=== PATIENT | male | born 1995 | race Caucasian/White ===

== ENCOUNTER 2017-02-16 16:35 | Observation (INO) | payer BC ==
--- NOTE | 2017-02-16 17:03 | EDPHY ---
H & P Stated Complaint: Sharp upper abd pain x 1 Time Seen by Provider: 02/16/17 17:02 HPI/ROS: CHIEF COMPLAINT: Abdominal pain HISTORY OF PRESENT ILLNESS: The patient presents to the ED with a 1 day history of acute severe abdominal pain. The patient reports his pain is in the hypogastric area. He reports nausea but no vomiting. He denies any diarrhea. He denies prior history of the symptoms. The patient denies history of recent fever, cough or congestion. The patient denies prior history of abdominal surgery. The patient currently rates his pain as an 8/10. The patient does have some mild chronic low back pain which has not acutely worsened today. REVIEW OF SYSTEMS: A comprehensive 10 point review of systems is otherwise negative aside from elements mentioned in the history of present illness. Source: Patient Exam Limitations: No limitations - Personal History Current Tetanus Diphtheria and Acellular Pertussis (TDAP): Yes - Medical/Surgical History Other PMH: healthy - Social History Smoking Status: Never smoked - Physical Exam Exam: General Appearance: Alert, no distress Eyes: Pupils equal and round no pallor or injection ENT, Mouth: Mucous membranes moist Respiratory: There are no retractions, lungs are clear to auscultation Cardiovascular: Regular rate and rhythm Gastrointestinal: Tenderness to palpation in the right lower quadrant, equivocal obturator, equivocal Rovsing Neurological: A&O, normal motor function, normal sensory exam, normal cranial nerves Skin: Warm and dry, no rashes Musculoskeletal: Neck is supple nontender Extremities: symmetrical, full range of motion Constitutional: Initial Vital Signs Temperature (C) 36.6 C 02/16/17 16:40 Heart Rate 80 02/16/17 16:40 Respiratory Rate 20 02/16/17 16:40 Blood Pressure 128/70 H 02/16/17 16:40 O2 Sat (%) 97 02/16/17 16:40 O2 Delivery Mode Room Air Allergies/Adverse Reactions: No Known Allergies Allergy (Unverified 02/16/17 16:44) Home Medications: Medication Instructions Recorded Benzonatate [Tessalon Pearles (RX)] 100 mg PO 02/16/17 Medical Decision Making - Diagnostics Imaging Results: Imaging Impressions Abdomen Ultrasound 02/16/17 17:40 Impression: Constellation of sonographic findings that would support a clinical diagnosis of acute appendicitis. Results called and discussed with Jaron Koch M.D. on 02/16/2017 at 18:27 ED Course/Re-evaluation: The patient had an IV established. The patient was made npo. The patient received 1 L of normal saline. He received IV fentanyl and Zofran. Given his right lower quadrant tenderness, a stat ultrasound was ordered to evaluate for possible acute appendicitis. Patient returns from his ultrasound. I reviewed the images and discussed with radiologist Dr. Davis Erickson. The patient does have ultrasonographic findings consistent with acute appendicitis. The patient received an additional 4 mg of IV morphine at 6:20 p.m.. 1 g of IV Invanz was ordered. General surgical consultation was requested with Dr. Mejía at 6:20 p.m. 7:40 p.m.: The patient was evaluated by Dr. Mejía. He has been transferred to the operating room for laparoscopic appendectomy. He will be admitted to the surgery service under Dr. Mejía's care postoperatively. Differential Diagnosis: Differential diagnosis considered includes appendicitis, mesenteric adenitis, cholecystitis, nephrolithiasis, pyelonephritis - Data Points Laboratory Results: Laboratory Results 02/16/17 17:10 02/16/17 17:10 02/16/17 02/16/17 17:10 17:10 WBC 15.91 10^3/uL H 10^3/uL (3.80-9.50) RBC 5.34 10^6/uL 10^6/uL (4.40-6.38) Hgb 16.6 g/dL g/dL (13.7-17.5) Hct 46.3 % % (40.0-51.0) MCV 86.7 fL fL (81.5-99.8) MCH 31.1 pg pg (27.9-34.1) MCHC 35.9 g/dL g/dL (32.4-36.7) RDW 12.1 % % (11.5-15.2) Plt Count 266 10^3/uL 10^3/uL (150-400) MPV 9.7 fL fL (8.7-11.7) Neut % (Auto) 81.2 % H % (39.3-74.2) Lymph % (Auto) 8.6 % L % (15.0-45.0) Young % (Auto) 8.4 % % (4.5-13.0) Eos % (Auto) 0.8 % % (0.6-7.6) Baso % (Auto) 0.5 % % (0.3-1.7) Nucleat RBC Rel Count 0.0 % % (0.0-0.2) Absolute Neuts (auto) 12.93 10^3/uL H 10^3/uL (1.70-6.50) Absolute Lymphs (auto) 1.37 10^3/uL 10^3/uL (1.00-3.00) Absolute Monos (auto) 1.33 10^3/uL H 10^3/uL (0.30-0.80) Absolute Eos (auto) 0.12 10^3/uL 10^3/uL (0.03-0.40) Absolute Basos (auto) 0.08 10^3/uL 10^3/uL (0.02-0.10) Absolute Nucleated RBC 0.00 10^3/uL 10^3/uL (0-0.01) Immature Gran % 0.5 % % (0.0-1.1) Immature Gran # 0.08 10^3/uL 10^3/uL (0.00-0.10) Sodium 136 mEq/L mEq/L (134-144) Potassium 4.0 mEq/L mEq/L (3.5-5.2) Chloride 99 mEq/L mEq/L (97-110) Carbon Dioxide 23 mEq/l mEq/l (22-31) Anion Gap 14 mEq/L mEq/L (8-16) BUN 15 mg/dL mg/dL (7-23) Creatinine 0.9 mg/dL mg/dL (0.7-1.3) Estimated GFR > 60 Glucose 92 mg/dL mg/dL (70-100) Calcium 9.5 mg/dL mg/dL (8.5-10.4) Total Bilirubin 0.7 mg/dL mg/dL (0.1-1.4) Conjugated Bilirubin 0.1 mg/dL mg/dL (0.0-0.5) Unconjugated Bilirubin 0.6 mg/dL mg/dL (0.0-1.1) AST 27 IU/L IU/L (17-59) ALT 29 IU/L IU/L (21-72) Alkaline Phosphatase 65 IU/L IU/L (38-126) Total Protein 7.5 g/dL g/dL (6.3-8.2) Albumin 4.6 g/dL g/dL (3.5-5.0) Lipase 121 IU/L IU/L (23-300) Medications Given: Discontinued Medications Fentanyl (Sublimaze) 100 mcg IVP EDNOW ONE Stop: 02/16/17 17:17 Last Admin: 02/16/17 17:23 Dose: 100 mcg Sodium Chloride (Ns) 1,000 mls @ 0 mls/hr IV EDNOW ONE; Wide Open PRN Reason: Protocol Stop: 02/16/17 17:17 Last Admin: 02/16/17 17:23 Dose: 1,000 mls Ertapenem 1 gm/ Sodium (Chloride) 100 mls @ 200 mls/hr IV EDNOW ONE PRN Reason: Protocol Stop: 02/16/17 18:49 Last Admin: 02/16/17 18:52 Dose: 100 mls Morphine Sulfate (Morphine) 4 mg IVP EDNOW ONE Stop: 02/16/17 18:21 Last Admin: 02/16/17 18:23 Dose: 2 mg Morphine Sulfate (Morphine) 2 mg IVP ONCE ONE Stop: 02/16/17 18:56 Last Admin: 02/16/17 19:18 Dose: 2 mg Departure - Departure Disposition: [facility] Inpatient Acute Clinical Impression: Acute appendicitis Condition: Good
[2017-02-16] MEDS ORDERED: fentaNYL 100 MCG/2 ML INJ IVP ONE (17:16)
[2017-02-16] MEDS ORDERED: NS 1,000 ML IV ONE (17:16)
[2017-02-16 17:23] LABS: % IMMATURE GRANULYOCYTES 0.5 % (0.0-1.1); ABSOLUTE IMMATURE GRANULOCYTES 0.08 10^3/uL (0.00-0.10); ADD DIFF? NO; ADD MORPH? NO; ADD SCAN? NO; ATYPICAL LYMPHOCYTE FLAG 10 (0-99); FRAGMENT RBC FLAG 0 (0-99); HEMATOCRIT 46.3 % (40.0-51.0); HEMOGLOBIN 16.6 g/dL (13.7-17.5); LEFT SHIFT FLG 0 (0-99); LIPEMIA HEMOLYSIS FLAG 90 (0-99); MEAN CELL HEMOGLOBIN 31.1 pg (27.9-34.1); MEAN CELL HEMOGLOBIN CONCENTR. 35.9 g/dL (32.4-36.7); MEAN CELL VOLUME 86.7 fL (81.5-99.8); MEAN PLATELET VOLUME 9.7 fL (8.7-11.7); PLATELET CLUMPS FLAG 0 (0-99); PLATELET COUNT 266 10^3/uL (150-400); RED BLOOD CELL COUNT 5.34 10^6/uL (4.40-6.38); RED CELL DISTRIBUTION WIDTH 12.1 % (11.5-15.2)
[2017-02-16 17:37] LABS: ALANINE AMINOTRANSFERASE 29 IU/L (21-72); ALBUMIN 4.6 g/dL (3.5-5.0); ALKALINE PHOSPHATASE 65 IU/L (38-126); ANION GAP 14 mEq/L (8-16); ASPARTATE AMINOTRANSFERASE 27 IU/L (17-59); BILIRUBIN,TOTAL 0.7 mg/dL (0.1-1.4); BILIRUBIN-CONJUGATED 0.1 mg/dL (0.0-0.5); BILIRUBIN-UNCONJUGATED 0.6 mg/dL (0.0-1.1); CALCIUM 9.5 mg/dL (8.5-10.4); CARBON DIOXIDE 23 mEq/l (22-31); CHLORIDE 99 mEq/L (97-110); CREATININE 0.9 mg/dL (0.7-1.3); GLOMERULAR FILTRATION RATE > 60; GLUCOSE 92 mg/dL (70-100); SODIUM 136 mEq/L (134-144); TOTAL PROTEIN 7.5 g/dL (6.3-8.2)
[2017-02-16] MEDS ORDERED: ERTAPENEM 1 GM in NS 100 ML IV ONE (18:20)
[2017-02-16] MEDS ORDERED: ceFAZolin 1 GM/5 ML SYR ONE (19:30)
[2017-02-16] MEDS ORDERED: HEPARIN 5,000 UNIT/0.5 ML SYR ONE (19:30)
[2017-02-16] MEDS ORDERED: LR 1,000 ML IV ONE (19:35)
--- NOTE | 2017-02-16 19:55 | PDANEPAE ---
ANE History of Present Illness 21 year old male presents for appendectomy. ANE Past Medical History - Cardiovascular History Hx Hypertension: No Hx Arrhythmias: No Hx Chest Pain: No Hx Coronary Artery / Peripheral Vascular Disease: No Hx CHF / Valvular Disease: No Hx Palpitations: No - Pulmonary History Hx COPD: No Hx Asthma/Reactive Airway Disease: No Hx Recent Upper Respiratory Infection: No Hx Oxygen in Use at Home: No Hx Sleep Apnea: No - Neurologic History Hx Cerebrovascular Accident: No Hx Seizures: No Hx Dementia: No - Endocrine History Hx Diabetes: No Hypothyroid: No Hyperthyroid: No Obesity: no - Renal History Hx Renal Disorders: No - Liver History Hx Hepatic Disorders: No - Neurological & Psychiatric Hx Hx Neurological and Psychiatric Disorders: No - Cancer History Hx Cancer: No - Congenital Disorder History Hx Congenital Disorders: No - GI History GERD: mild Hx Gastrointestinal Disorders: No ANE Review of Systems Review of systems is: negative Review of Systems: - Exercise capacity Exercise capacity: >=4 METS ANE Patient History - Allergies Allergies/Adverse Reactions: No Known Allergies Allergy (Unverified 02/16/17 16:44) - Home Medications Home medications: home medication list seen and reviewed Home Medications: Benzonatate [Tessalon Pearles (RX)] 100 mg PO 02/16/17 [Last Taken Unknown] - NPO status NPO Since - Liquids (Date): 02/16/17 NPO Since - Liquids (Time): 16:00 NPO Since - Solids (Date): 02/16/17 NPO Since - Solids (Time): 14:00 - Smoking Hx Smoking Status: Never smoked Marijuana use: Yes - Alcohol Use Alcohol Use: Occasionally - Family Anes Hx Family Anes Hx: neg - N/A ANE Labs/Vital Signs - Labs Result Diagrams: 02/16/17 17:10 02/16/17 17:10 - Vital Signs Vital Signs: reviewed preoperatively; see RN documention for details Blood Pressure: 135/64 Heart Rate: 82 Respiratory Rate: 20 O2 Sat (%): 95 Height: 175.26 cm Weight: 90.718 kg ANE Physical Exam - Airway Neck exam: FROM Mallampati Score: Class 2 Mouth exam: normal dental/mouth exam - Pulmonary Pulmonary: no respiratory distress - Cardiovascular Cardiovascular: regular rate and rhythym - ASA Status ASA Status: I, E ANE Anesthesia Plan Anesthesia Plan: general endotracheal anesthesia Total IV Anesthesia: No
[2017-02-16] MEDS ORDERED: fentaNYL 100 MCG/2 ML INJ ONE ×4 (19:56→21:51)
[2017-02-16] MEDS ORDERED: PROPOFOL 200 MG/20 ML VIAL ONE (19:56)
[2017-02-16] MEDS ORDERED: MIDAZOLAM 2 MG/2 ML VIAL ONE (19:56)
[2017-02-16] MEDS ORDERED: LIDOCAINE 2% 5 ML SDV ONE ×2 (19:57)
[2017-02-16] MEDS ORDERED: ROCURONIUM 50 MG/5 ML VIAL ONE (19:57)
[2017-02-16] MEDS ORDERED: SUCCINYLCHOLINE CHLORIDE*ANESTHESIA ONLY*200 MG/10 ML SYR IVP ONE (19:57)
--- NOTE | 2017-02-16 20:07 | GHP ---
[f rep st] PREOP HISTORY AND PHYSICAL DATE OF ADMISSION: 02/16/2017 ADMITTING DIAGNOSIS: Acute appendicitis. 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 He then came home, took a nap, and woke up approximately 4:00 p.m. He had no nausea or vomiting, but had a bandlike lower abdominal pain, which became more prominent in the right lower quadrant, prompting him to come to the emergency room for evaluation. He has had an upper respiratory tract infection for approximately 1 day, and no antecedent history of diarrhea (his last stool was this morning and normal). He has had no prior similar symptoms and no abdominal surgery. There is no history of inflammatory bowel disease. He has not had any travel outside the [place] or antibiotic use in the last 6 months. He did not eat breakfast , and usually does not. He had a burger for lunch approximately 1-2, and had a sip of water approximately 4:00 p.m. Note is made that his girlfriend is ill, and she had some penicillin pills, which he took 2 days ago. He presented to the emergency room. He was found to have a white blood cell count of 15,900 with 81% neutrophils. His lipase was normal at 121. His temperature is 36.8. Blood pressure 127/67 and 91. Sonogram showed a noncompressible tubular structure in the right lower quadrant. SOCIAL HISTORY: He smoked from age [age] at approximately 2 cigarettes a day. He does drink 3 nights a week, and typically drinks 6-7 beers on those nights. ALLERGIES: He has no known drug allergies. MEDICATIONS: He is not taking medications. PAST SURGICAL HISTORY: He has had no prior surgery. PAST MEDICAL HISTORY: There is no history of rheumatic fever, tuberculosis, hepatitis, or transfusions. REVIEW OF SYSTEMS: He has had 1 concussion. He wears lenses for visual correction. There are no limits on his activities, and no history of steroid use. PHYSICAL EXAMINATION: GENERAL: He is seen lying in ER bed 23. He is awake, alert, pleasant, but uncomfortable. There is no cervical, supraclavicular, axillary or inguinal lymphadenopathy identified. LUNGS: Clear to auscultation. CARDIAC: S1, S2 to be normal. ABDOMINAL: Hypoactive bowel sounds. He is tender with cough in both the epigastrium and the right lower quadrant. Right lower quadrant is 5 on a scale of 1-10. Epigastrium is 8. Psoas and obturator signs are negative. To palpation, his left upper quadrant is 7. Left midabdomen is 1. Left lower quadrant is 7. Epigastrium is 8. Periumbilical region is 9. Suprapubic area is 7. Right upper quadrant is 8. Right midabdomen is 9. Right lower quadrant is 10. PRESUMPTIVE DIAGNOSIS: Acute appendicitis. PLAN: I will plan a laparoscopic appendectomy. The patient understands the planned procedure and agrees to proceed as outlined. /[id number]/MODL MTDD
[2017-02-16] MEDS ORDERED: SUGAMMADEX SODIUM 200 MG/2 ML VIAL IVP ONE (20:23)
[2017-02-16] MEDS ORDERED: ONDANSETRON 4 MG/2 ML VIAL ONE (20:23)
[2017-02-16] MEDS ORDERED: DEXAMETHASONE 4 MG/ML VIAL ONE (20:24)
[2017-02-16] MEDS ORDERED: KETOROLAC 30 MG/1 ML SDV ONE (20:47)
[2017-02-16] MEDS ORDERED: HYDROmorphone HCL/NS/PF 0.4 MG/2 ML SYR IVP PRN (21:08)
[2017-02-16] MEDS ORDERED: ONDANSETRON 4 MG/2 ML VIAL IVP PRN ×2 (21:08→21:20)
[2017-02-16] MEDS ORDERED: BENZONATATE 100 MG CAP PO PRN (21:13)
--- NOTE | 2017-02-16 21:17 | POSTOPPROG ---
Post Op Note Date of Operation: 02/16/17 Surgeon: Devon Mejía Anesthesia: GET(General Endotracheal) Pre-op Diagnosis: acute appendicitis Post-op Diagnosis: acute unruptured appendicitis Indication: acute appendicitis Procedure: laparoscopic appendectomy Findings: acute unruptured appendicitis Inf/Abcess present in the surg proc area at time of surgery?: No EBL: Minimal Total fluids administered: 650 in OR 1000 in ER Complications: none Specimen(s): appendix
[2017-02-16] MEDS ORDERED: LR 500 ML IV PRN (21:20)
[2017-02-16] MEDS ORDERED: NALOXONE HCL 0.4 MG/ML INJ IVP PRN (21:20)
[2017-02-16] MEDS ORDERED: OXYCODONE/APAP 5/325 TAB PO PRN (21:20)
--- NOTE | 2017-02-16 21:21 | POSTANESTH ---
Post Anesthetic Evaluation Cardiovascular Status: Normal, Stable, Similar to Pre-Op Cond Respiratory Status: Normal, Stable, Similar to Pre-op Cond. Level of Consciousness/Mental Status: Can Participate in Eval, Alert and Oriented Pain Control: Adequate, Prn Tx Ordered Nausea/Vomiting Control: Adequate, Prn Tx Ordered Complications Possibly Related to Anesthesia: None Noted
[2017-02-16] MEDS: fentaNYL 100 MCG/2 ML INJ IVP PRN ×4 (21:22→22:03)
[2017-02-16] MEDS ORDERED: LR 1,000 ML IV SCH (21:30)
[2017-02-16] MEDS ORDERED: HYDROmorphONE/DILAUDID 1 MG/ML INJ ONE (21:40)
--- NOTE | 2017-02-16 21:43 | GOP ---
[f rep st] OPERATIVE REPORT DATE OF OPERATION: 02/16/2017 SURGEON: Devon Mejía MD PREOPERATIVE DIAGNOSIS: Acute appendicitis. POSTOPERATIVE DIAGNOSIS: Acute unruptured appendicitis. PROCEDURE PERFORMED: Laparoscopic appendectomy. FINDINGS: Acute unruptured appendicitis. ESTIMATED BLOOD LOSS: Scant. INDICATIONS: Acute appendicitis. DESCRIPTION OF PROCEDURE: The patient is placed on the operating table in supine position. After induction of adequate general endotracheal anesthesia, a surgical time-out was carried out and agreed to by all members of the operative team. A curvilinear incision was planned in the umbilicus. A linear transverse 5 mm incision was planned in the suprapubic area and an oblique 5 mm incision was planned in the left lower quadrant. All incisions were made sharply. Dissection was continued with Bovie electrocautery and blunt dissection, particularly at the umbilical site. The rectus sheath was elevated between 2 Allis clamps. The rectus sheath was incised in the midline. A pursestring #0 PDS was placed. An 11-12 mm Janelle trocar was positioned. Intra-abdominal insufflation was carried out to 15 mmHg. A 5 mm port was placed under direct vision in the left lower quadrant and in the suprapubic area. The appendix is hidden under a lateral adhesion from the terminal ileum draping over the top of it. This adhesion is carefully lysed to expose the appendix. The mesoappendix was divided down to the appendiceal base on the cecum. A powered 35 mm Endo- KISHA stapler was used to transect the appendix on the cecum, taking a small cuff of cecum. The specimen was placed in EndoCatch bag and delivered via the umbilical port site. Pneumoperitoneum was re-established. The pelvis was carefully examined. There was a small amount of translucent fluid identified. This was aspirated and irrigation was carried out with heparin and Ancef containing irrigant. The small bowel was run for a distance of 3 feet. There was no evidence of mesenteric adenitis or Meckel's diverticulum. The ports were removed under direct vision. The umbilical fascial defect was carefully elevated with Allis clamps at the midpoint on each side of the midline. A simple suture of #0 PDS was placed. The pursestring was tied and then the second suture was tied. Hemostasis was checked and found to be excellent. Inverted simple sutures of #4-0 Vicryl were placed at all incisions. Mastisol and Steri-Strips were applied. Band-Aids were positioned. The patient was transferred to recovery in stable and satisfactory condition. FLUIDS: 1000 cc in the ER and 650 cc in the OR. /[id number]/MODL MTDD
[2017-02-16] MEDS: HYDROmorphONE/DILAUDID 1 MG/ML INJ IVP PRN ×2 (21:45→21:57)
[2017-02-16] MEDS: ACETAMINOPHEN 500 MG TAB PO SCH (23:20)
[2017-02-17] MEDS: KETOROLAC 30 MG/1 ML SDV IVP SCH ×2 (00:32→06:19)
[2017-02-17 04:29] VITALS: RESP 16
[2017-02-17] MEDS: ACETAMINOPHEN 500 MG TAB PO SCH (04:48)
[2017-02-17] MEDS ORDERED: HYDROCODONE/APAP 5/325 TAB PO PRN (07:36)
[2017-02-17 07:40] VITALS: BP 111/60; PULSE 78; TEMP 97.9; O2SAT 97
--- NOTE | 2017-02-17 07:43 | PDDCSUM ---
Discharge Summary Discharge Summary: DISCHARGE SUMMARY Date of Admission February 16 Date of Discharge February 17 DISCHARGE DIAGNOSES -acute appendicitis HOSPITAL COURSE The patient was admitted from the ED and taken to the operating room where they underwent an uneventful laparoscopic appendectomy. They were subsequently taken to the PACU and then the general medical floor. The hospital course was uneventful, their diet was advanced to a regular diet which was well tolerated and their pain was well controlled. They were discharged home in stable condition on the morning of the DISCHARGE MEDICATIONS The only new medication was [place] as needed for pain DISPOSITION Home FOLLOW UP Follow up with me in the office in 10-14 days for a general post-operative visit
--- NOTE | 2017-02-17 11:44 | ASDISCHSUM ---
Discharge Information Plan Status:Home with No Needs Medically Cleared to Leave:02/16/2017 Discharge Date:02/17/2017 10:21 AM CM D/C Disposition: ADT D/C Disposition:Home, Routine, Self-Care Projected Discharge Date:02/17/2017 12:00 AM Transportation at D/C: Discharge Delay Reason: Follow-Up Date:02/17/2017 12:00 AM Discharge Slot: Final Diagnosis: Placement Information Patient Contact Information Contact Name:CHRISTINE Relationship:Mother Address: Work Phone: City:[place] Alternate Phone: State/Zip Code:[place] Email: Financial Information Financial Class:HMO and PPO Plans Primary Plan Desc: OUT OF STATE PPO Primary Plan Number:[id number] Secondary Plan Desc: Secondary Plan Number: Assessment Information Intervention Information
== END 2017-02-17 10:21 | disposition home or self-care (01) ==
LOC: F3E 22:17
PROVIDERS: ADMIT Surgery; ATTEND Surgery
PROC: 0DTJ4ZZ Resection of Appendix, Percutaneous Endoscopic Approach (ICD-10-PCS; principal; 2017-02-16 19:30)
DX: K35.80 Unspecified acute appendicitis (principal)
CPT/HCPCS: 44970; 76705; G0378; 96365; J0330; J1100; J1170; J1335; J1885; J2250; J2405; J2704; J3010

== ENCOUNTER 2017-02-19 19:25 | Emergency (ER) | payer BC ==
--- NOTE | 2017-02-19 20:35 | EDPHY ---
H & P Stated Complaint: Incision bandage has blood on it Time Seen by Provider: 02/19/17 20:35 HPI/ROS: Chief Complaint: Wound check HPI: The patient presents to the ED for wound check. He is status post laparoscopic appendectomy. He was discharged home uneventfully several days ago. The patient noticed some small bleeding around his umbilical incision and presents for a evaluation. The patient denies any fever, abdominal pain, vomiting. The patient has continued to have normal bowel movements. He denies any additional acute complaints. REVIEW OF SYSTEMS: Neuro: no headache, numbness, weakness Musculoskeletal: as above Skin: As above Source: Patient Exam Limitations: No limitations - Personal History Current Tetanus/Diphtheria Vaccine: Unsure Current Tetanus Diphtheria and Acellular Pertussis (TDAP): Unsure - Medical/Surgical History Hx Asthma: No Hx Chronic Respiratory Disease: No Hx Diabetes: No Hx Cardiac Disease: No Hx Renal Disease: No Hx Cirrhosis: No Hx Alcoholism: No Hx HIV/AIDS: No Hx Splenectomy or Spleen Trauma: No Other PMH: appendectomy - Social History Smoking Status: Never smoked - Physical Exam Exam: General Appearance: Alert, no distress Gastrointestinal: Abdomen is soft and nontender, no masses, bowel sounds normal Skin: Surgical incisions are clean dry and intact, small area of bleeding noted on the dressing less than 1 cm in size consistent with a very mild incisional hematoma which is drained. There is no evidence of any active dehiscence. Constitutional: Initial Vital Signs Temperature (C) 37.2 C 02/19/17 19:33 Heart Rate 72 02/19/17 19:33 Respiratory Rate 16 02/19/17 19:33 Blood Pressure 147/88 H 02/19/17 19:33 O2 Sat (%) 96 02/19/17 19:33 O2 Delivery Mode Room Air Allergies/Adverse Reactions: No Known Allergies Allergy (Verified 02/19/17 19:36) Home Medications: Medication Instructions Recorded Hydrocodone/APAP 5/325 [[place] 1 - 2 tab PO Q4HRS PRN #20 tab 02/17/17 5/325 (*)] Medical Decision Making ED Course/Re-evaluation: Patient is well-appearing with typical postoperative bleeding noted on a surgical bandage. There is no evidence of wound dehiscence there is no evidence of a significant abdominal wall hematoma. The patient has been advised that this is a typical finding. The patient will be discharged home with customary aftercare instructions and return precautions. Departure - Departure Disposition: Home, Routine, Self-Care Clinical Impression: Postoperative bleeding from incision Condition: Good Additional Instructions: 1. Please follow up with Dr. Mejía as scheduled for your postop check. 2. Return to the ED for heavy bleeding, markedly worsening symptoms or other concerns. 3. The bleeding seen in the emergency department today is typical postoperative bleeding. Referrals: Devon Mejía MD [Medical Doctor] - As per Instructions
[2017-02-19 20:58] VITALS: BP 157/99; PULSE 76; RESP 18; TEMP 98.6; O2SAT 95
== END 2017-02-19 20:57 | disposition home or self-care (01) ==
DX: L76.22 Postprocedural hemorrhage of skin and subcutaneous tissue following other procedure (principal)

== ENCOUNTER 2018-06-18 13:00 | Emergency (ER) | payer BC, OTHER ==
[2018-06-18 13:31] VITALS: BP 127/66
--- NOTE | 2018-06-18 13:59 | EDPHY ---
H & P Stated Complaint: hit head on dresser 4 days ago (no loc) still having h/a Time Seen by Provider: 06/18/18 13:51 HPI/ROS: CHIEF COMPLAINT: Concussion HISTORY OF PRESENT ILLNESS: Patient is a 23-year-old man who was intoxicated on Thursday evening when he tripped and fell on his head on the dresser. He had his right forehead. No laceration. He reports that he had a mild contusion that has since resolved. No double vision or facial depression. No bloody nose. No hearing changes. He reports having frequent headaches, photophobia and sensitivity to loud noise since the episode. Also mild nausea that is worse in the mornings. He states that he did throat this morning. He presented initially to an urgent care who recommended he come to the ER for evaluation. No fevers. No other injuries. No neck pain. No focal weakness deficits or paresthesias. He did go to school yesterday but had a snow day on Thursday. Severity: Mild Modifying factors: Worse in the mornings REVIEW OF SYSTEMS: Constitutional: denies: chills, fever, recent illness, recent injury EENTM: denies: blurred vision, double vision, nose congestion Respiratory: denies: cough, shortness of breath Cardiac: denies: chest pain, irregular heart rate, lightheadedness, palpitations Gastrointestinal/Abdominal: denies: abdominal pain, diarrhea, nausea, vomiting, blood streaked stools Genitourinary: denies: dysuria, frequency, hematuria, pain Musculoskeletal: denies: joint pain, muscle pain Skin: denies: lesions, rash, jaundice, bruising Neurological: See HPI denies: numbness, paresthesia, tingling, dizziness, weakness Hematologic/Lymphatic: denies: blood clots, easy bleeding, easy bruising Immunologic/allergic: denies: HIV/AIDS, transplant 10 systems reviewed and negative except as noted EXAM: GENERAL: Well-appearing, well-nourished and in no acute distress. HEAD: Atraumatic, normocephalic. EYES: Pupils equal round and reactive to light, extraocular movements intact, sclera anicteric, conjunctiva are normal. ENT: TMs normal, nares patent, oropharynx clear without exudates. Moist mucous membranes. NECK: Normal range of motion, supple without lymphadenopathy or JVD. LUNGS: Breath sounds clear to auscultation bilaterally and equal. No wheezes rales or rhonchi. HEART: Regular rate and rhythm without murmurs, rubs or gallops. ABDOMEN: Soft, nontender, normoactive bowel sounds. No guarding, no rebound. No masses appreciated. BACK: No CVA tenderness, no spinal tenderness, step-offs or deformities EXTREMITIES: Normal range of motion, no pitting or edema. No clubbing or cyanosis. NEUROLOGICAL: Cranial nerves II through XII grossly intact. Normal speech, normal gait. 5/5 strength, normal movement in all extremities, normal sensation , normal reflexes PSYCH: Normal mood, normal affect. SKIN: Warm, dry, normal turgor, no visible rashes or lesions. Source: Patient Exam Limitations: No limitations - Medical/Surgical History Hx Asthma: No Hx Chronic Respiratory Disease: No Hx Diabetes: No Hx Cardiac Disease: No Hx Renal Disease: No Hx Cirrhosis: No Hx Alcoholism: No Hx HIV/AIDS: No Hx Splenectomy or Spleen Trauma: No Other PMH: appendectomy - Family History Significant Family History: No pertinent family hx - Social History Smoking Status: Never smoked Alcohol Use: Occasionally Constitutional: Initial Vital Signs Temperature (C) 36.7 C 06/18/18 13:28 Heart Rate 78 06/18/18 13:28 Respiratory Rate 16 06/18/18 13:28 Blood Pressure 127/66 H 06/18/18 13:28 O2 Sat (%) 97 06/18/18 13:28 O2 Delivery Mode Room Air Allergies/Adverse Reactions: No Known Allergies Allergy (Verified 02/19/17 19:36) Home Medications: Medication Instructions Recorded NK [No Known Home Meds] 06/18/18 Medical Decision Making ED Course/Re-evaluation: Patient has symptoms consistent with concussion. His injury is several days old. We discussed concussion protocol and recovery. I did discuss with him risks and benefits of CT scan. He does not have any significant injury on exam. He has already done well clinically for several days. I feel that the chance of having a clinically significant finding on CT scan is very low. He agrees with this and declines imaging. Will have him follow up with concussion clinic. Differential Diagnosis: Partial list of the Differential diagnosis considered include but were not limited to; concussion, contusion and although unlikely based on the history and physical exam, I also considered fracture, intracranial hemorrhage, neck injury. I discussed these differential diagnoses and the plan with the patient as well as the usual and expected course. The patient understands that the diagnosis is provisional and that in medicine we are not always correct and that further workup is often warranted. Usual and customary warnings were given. All of the patient's questions were answered. The patient was instructed to return to the emergency department should the symptoms at all worsen or return, otherwise to followup with the physician as we discussed. - Data Points Medications Given: Discontinued Medications Ondansetron HCl (Zofran Odt) 4 mg PO EDNOW ONE Stop: 06/18/18 14:06 Last Admin: 06/18/18 14:06 Dose: 4 mg Departure - Departure Disposition: Home, Routine, Self-Care Clinical Impression: Concussion Qualifiers: Encounter type: initial encounter Loss of consciousness presence/duration: without LOC Qualified Code(s): S06.0X0A - Concussion without loss of consciousness, initial encounter Condition: Fair Instructions: Concussion (ED) Referrals: NONE *PRIMARY CARE P,. [Primary Care Provider] - As per Instructions Goldie Giles MD [Medical Doctor] - 2-3 days, call for appt. Stand Alone Forms: School Excuse
[2018-06-18] MEDS ORDERED: ONDANSETRON DISINTEGRATING 4 MG TAB ONE (14:05)
[2018-06-18] MEDS ORDERED: ONDANSETRON DISINTEGRATING 4 MG TAB PO ONE (14:05)
== END 2018-06-18 14:22 | disposition home or self-care (01) ==
DX: S06.0X0A Concussion without loss of consciousness, initial encounter (principal); W01.190A Fall on same level from slipping, tripping and stumbling with subsequent striking against furniture, initial encounter; Y92.9 Unspecified place or not applicable; Y93.9 Activity, unspecified; Y99.9 Unspecified external cause status